=== PATIENT | female | born 1990 ===

== ENCOUNTER 2023-03-17 02:57 | Emergency (ER) | payer OTHER ==
[~2023-03-17] VITALS: Ht 165.1 cm; Wt 73.0 kg
[2023-03-17 03:04] VITALS: TEMP 98.5; O2SAT 100
[2023-03-17 06:34] LABS: CLARITY URINE TURBID (CLEAR); COLOR URINE DARK YELLOW (YELLOW); GLUCOSE URINE NEGATIVE (NEGATIVE); KETONES URINE TRACE (NEGATIVE); PH URINE 5.5 (4.5-8.0); PROTEIN URINE 1+ (NEGATIVE); SPECIFIC GRAVITY URINE 1.035 (1.005-1.030)
[2023-03-17 06:36] LABS: LEUKOCYTE ESTERASE URINE NEGATIVE (NEGATIVE); NITRITE URINE NEGATIVE (NEGATIVE); OCCULT BLOOD URINE 3+ (NEGATIVE)
[2023-03-17 06:56] LABS: SQUAMOUS EPITHELIAL CELL URINE 1+ /lpf (RARE/1+)
[2023-03-17 06:57] LABS: RBC URINE TNTC /hpf (0-2); WBC URINE 0-2 /hpf (0-2)
[2023-03-17 06:58] LABS: BACTERIA URINE TRACE
[2023-03-17] MEDS ORDERED: IBUP-2029 MT (09:55)
[2023-03-17] MEDS ORDERED: HYDROCODONE/ACETAMINOPHEN 5/325MG TABLET PO ONE (10:00)
[2023-03-17] MEDS ORDERED: KETOROLAC 30MG/ML VIAL IM SCH (10:00)
[2023-03-17 10:22] VITALS: BP 121/76; PULSE 76; RESP 20
== END 2023-03-17 10:25 | disposition home or self-care (01) ==
LOC: ER 02:57
DX: N20.0 Calculus of kidney (principal)
CPT/HCPCS: 74176; 81003; 81025; 99284